=== PATIENT | female | born 1995 | race African-American/Black ===

== ENCOUNTER 2020-02-15 21:48 | Emergency (ER) | payer SELFPAY ==
[~2020-02-15] VITALS: Ht 144.8 cm; Wt 43.0 kg
[2020-02-15 23:26] LABS: BASOPHILS % 0.7 % (0.0-2.0); EOSINOPHILS % 0.8 % (0.0-5.0); HEMATOCRIT. 43.8 % (36.0-48.0); HEMOGLOBIN. 15.4 g/dL (12.0-16.0); LYMPHOCYTES % 43.1 % (20.0-50.0); MEAN CORPUSCULAR HEMOGLOBIN 31.2 pg (28.0-32.0); MEAN CORPUSCULAR VOLUME 88.7 fL (81.0-99.0); MEAN PLATELET VOLUME 8.1 fl (7.4-10.4); MONOCYTES % 13.3 % (2.0-8.0); NEUTROPHILS % 42.1 % (40.0-76.0); PLATELET 315 x1000/uL (130-400); RED BLOOD CELL COUNT 4.94 mill/uL (4.2-5.4); RED CELL DISTRIBUTION WIDTH 12.8 % (11.6-14.6)
[2020-02-15 23:30] VITALS: BP 106/75
[2020-02-15 23:36] LABS: CHLORIDE 107 mEq/L (98-107)
== END 2020-02-16 00:26 | disposition home or self-care (01) ==
LOC: ER 21:48
DX: Z20.828 Contact with and (suspected) exposure to other viral communicable diseases (principal)
CPT/HCPCS: 36415; 71045; 80053; 85025; 93005; 99285